=== PATIENT | male | born 1940 | race Caucasian/White ===

== ENCOUNTER 2017-08-13 15:26 | Emergency (ER) | payer MEDICARE, OTHER ==
[~2017-08-13] VITALS: Ht 185.4 cm; Wt 139.1 kg
[2017-08-13 16:07] VITALS: Ht 185.4 cm; Wt 139.1 kg
[2017-08-13] MEDS ORDERED: MOBIC7.5 MG PO (16:08)
[2017-08-13] MEDS ORDERED: LIORESAL 10 MG10 MG PO (16:09)
[2017-08-13] MEDS ORDERED: BAYER CHEWABLE81 MG PO (16:10)
[2017-08-13] MEDS ORDERED: TIROSINT25 MCG PO (16:10)
[2017-08-13] MEDS ORDERED: DIOVAN HCT 160/1 TA1 PO (16:10)
[2017-08-13] MEDS ORDERED: FLUTICASONE PRO16 GM NASAL (16:10)
[2017-08-13 17:29] LABS: BASOPHILS 0.3 % (0-2); EOSINOPHILS 2.1 % (0-7); HEMATOCRIT 36.9 % (42.0-54.0); HEMOGLOBIN 12.7 g/dL (13.5-17.5); IMMATURE GRANULOCYTES 0.2 % (0-5); LYMPHOCYTES 22.1 % (15-50); MCH 31.4 pg (26.0-34.0); MCHC 34.4 g/dL (31.0-37.0); MCV 91.1 fL (80.0-100.0); MEAN PLATELET VOLUME 10.3 fL (7.4-10.4); NEUTROPHILS 64.3 % (40-80); PLATELET COUNT 174 10x3/uL (130-400); RBC 4.05 10x6/uL (4.20-6.10); RDW 12.8 % (11.5-14.5); WBC 6.7 10x3/uL (4.8-10.8)
[2017-08-13 17:41] LABS: APTT 26.9 SECONDS (22.8-39.4); INR 1.03 (0.85-1.17); PROTIME 13.1 SECONDS (11.6-15.0)
[2017-08-13 17:43] LABS: D-DIMER-QUANTITATIVE 0.45 ug/mLFEU (0.20-0.54)
[2017-08-13 17:52] LABS: ALBUMIN 3.7 g/dL (3.4-5.0); ANION GAP 10.1 mmol/L (8-16); BILIRUBIN - TOTAL 0.27 mg/dL (0.2-1.3); CALCIUM 9.1 mg/dL (8.5-10.1); CARBON DIOXIDE 29.1 mmol/L (21.0-32.0); CREATININE - SERUM 1.3 mg/dL (0.6-1.3); POTASSIUM - SERUM 4.2 mmol/L (3.5-5.1); PROTEIN - SERUM 7.4 g/dL (6.4-8.2)
[2017-08-13 21:10] LABS: APPEARANCE CLEAR (CLEAR); COLOR YELLOW (YELLOW)
[2017-08-13 21:11] LABS: BILIRUBIN NEGATIVE (NEGATIVE); GLUCOSE NEGATIVE (NEGATIVE); KETONE NEGATIVE (NEGATIVE); NITRITE NEGATIVE (NEGATIVE); PROTEIN NEGATIVE (NEGATIVE); SPECIFIC GRAVITY 1.015 (1.005-1.020); UROBILINOGEN NORMAL (NORMAL)
[2017-08-13] MEDS ORDERED: VALIUM 2 MG TAB2 MG PO (21:30)
[2017-08-13] MEDS ORDERED: NORCO 7.5/325 T1 TA1 PO (21:30)
[2017-08-13 21:48] VITALS: BP 169/74
== END 2017-08-13 21:50 | disposition home or self-care (01) ==
LOC: D.ER 15:26
PROVIDERS: Family Medicine
DX: M54.5 Low back pain (principal); M54.31 Sciatica, right side; M48.061 Spinal stenosis, lumbar region without neurogenic claudication; I10 Essential (primary) hypertension; M79.661 Pain in right lower leg